=== PATIENT | female | born 1995 | race Caucasian/White ===

== ENCOUNTER 2020-04-21 11:34 | Emergency (ER) | payer OTHER ==
[~2020-04-21] VITALS: Ht 162.6 cm; Wt 81.6 kg
--- NOTE | 2020-04-21 11:34 | NUR ---
JESUS ALBERTO BATEMAN ALS TO ER BED 04. RN EVALUATING AT BEDSIDE.
[2020-04-21 11:49] VITALS: BP 101/68
[2020-04-21 12:02] LABS: BASOPHILS % (AUTO) 0.4 % (0.0-2.0); EOSINOPHILS # (AUTO) 0.1 K/uL (0-0.4); EOSINOPHILS % (AUTO) 1.5 % (0.0-4.0); HEMATOCRIT 41.7 % (36-48); HEMOGLOBIN 13.4 g/dL (12.0-16.0); LYMPHOCYTES # (AUTO) 2.6 K/uL (2.5-16.5); LYMPHOCYTES % (AUTO) 29.9 % (20.5-51.1); MEAN CORPUSCULAR HEMOGLOBIN 28 pg (27-31); MEAN CORPUSCULAR HGB CONC 32 g/dL (33-37); MEAN CORPUSCULAR VOLUME 86.2 fL (80-94); MONOCYTES # (AUTO) 0.4 K/uL (0.8-1.0); NEUTROPHILS # (AUTO) 5.6 K/uL (1.8-7.7); NEUTROPHILS % (AUTO) 63.2 % (42.2-75.2); PLATELET COUNT (AUTO) 277 K/uL (140-450); RED BLOOD CELL COUNT(AUTO) 4.83 MIL/uL (4.20-5.40); WHITE BLOOD COUNT (AUTO) 8.8 K/uL (4.8-10.8)
--- NOTE | 2020-04-21 12:24 | NUR ---
24 Y/O FEMALE BIBA C/O GENERALIZED WEAKNESS X1 DAY. DENIES ANY V/D, INTERMITENT NAUSEA. PT STATES SHE HAS NOT BEEN DRINKING WATER, AND STATES "I ONLY TAKE A SHOT OF WATER A WEEK". STATES SHE HAS BEEN OFF HER ANTI-DEPRESSANT MEDS FOR A MONTH. DENIES ANY S/I, H/I AT THIS TIME, BUT HAS HAD S/I THOUGHTS IN THE PAST. ABD PAIN IS 4/10, SHARP. ABD SOFT/NON TENDER/NON DISTENDED. BOWEL SOUNDS NORMOACTIVE IN ALL QUADRANTS. RESP EVEN AND UNLABORED. VSS.
[2020-04-21 12:31] LABS: CARBON DIOXIDE 24.4 mmol/L (21-32); CREATININE 0.8 mg/dL (0.6-1.3); POTASSIUM 3.4 mmol/L (3.5-5.1)
[2020-04-21 12:36] LABS: ALBUMIN 3.1 g/dL (3.4-5.0); TOTAL BILIRUBIN 0.2 mg/dL (0.0-1.0)
--- NOTE | 2020-04-21 12:51 | NUR ---
PT IS RESTING IN BED, AWAKE WITH EYES OPEN. RESP EVEN AND UNLABORED. VSS
[2020-04-21] MEDS ORDERED: KETOROLAC 30 MG/ML VIAL IVP ONE (14:30)
--- NOTE | 2020-04-21 14:56 | NUR ---
PT STATES PAIN HAS DECREASED TO 3/10
--- NOTE | 2020-04-21 15:20 | NUR ---
Patient discharged with v/s stable. Written and verbal after care instructions given and explained. Patient alert, oriented and verbalized understanding of instructions. Ambulatory with steady gait. All questions addressed prior to discharge. ID band removed. Patient advised to follow up with PMD. Rx of LEXAPRO given. Patient educated on indication of medication including possible reaction and side effects. Opportunity to ask questions provided and answered.
[2020-04-21 15:21] VITALS: BP 110/71
== END 2020-04-21 15:20 | disposition home or self-care (01) ==
LOC: MED 11:34
DX: K59.00 Constipation, unspecified (principal); K86.9 Disease of pancreas, unspecified; K35.80 Unspecified acute appendicitis; R65.11 Systemic inflammatory response syndrome (SIRS) of non-infectious origin with acute organ dysfunction; K81.0 Acute cholecystitis; J86.9 Pyothorax without fistula; F11.10 Opioid abuse, uncomplicated
CPT/HCPCS: 36415; 80053; 81002; 81025; 83690; 85025; 96374; 99283; J1885

== ENCOUNTER 2020-05-10 15:22 | Emergency (ER) | payer OTHER ==
[~2020-05-10] VITALS: Ht 167.6 cm; Wt 99.8 kg
--- NOTE | 2020-05-10 16:00 | NUR ---
C/O L ANKLE PAIN 04/04 S/P MECHANICAL FALL YESTERDAY. PT IS ABLE TO BEAR WEIGHT ON ANKLE, BUT WITH PAIN. NO OBVIOUS DEFORMITY NOTED. CMS INTACT. BED IN LOW POSITION, SIDE RAIL UP X1
[2020-05-10 16:06] VITALS: BP 134/77
--- NOTE | 2020-05-10 16:08 | NUR ---
PT AMBULATED TO BED 11.
--- NOTE | 2020-05-10 16:40 | NUR ---
XRAY AT BEDSIDE
[2020-05-10 17:53] VITALS: BP 134/77
--- NOTE | 2020-05-10 17:54 | NUR ---
Patient discharged with v/s stable. Written and verbal after care instructions given and explained. Patient alert, oriented and verbalized understanding of instructions. Ambulatory with steady gait. All questions addressed prior to discharge. ID band removed. Patient advised to follow up with PMD. Rx of Ibuprofen 400mg given. Patient educated on indication of medication including possible reaction and side effects. Opportunity to ask questions provided and answered.
== END 2020-05-10 17:54 | disposition home or self-care (01) ==
LOC: MED 15:22
DX: S93.492A Sprain of other ligament of left ankle, initial encounter (principal); X50.9XXA Other and unspecified overexertion or strenuous movements or postures, initial encounter; Y93.89 Activity, other specified; Y92.89 Other specified places as the place of occurrence of the external cause; Y99.8 Other external cause status
CPT/HCPCS: 73600; 81025; 99283; Q0092; 81002